=== PATIENT | male | born 1975 ===

== ENCOUNTER 2018-10-10 15:37 | Emergency (ER) | payer MEDICAID ==
[2018-10-10 15:58] VITALS: TEMP 98.2; O2SAT 99
--- NOTE | 2018-10-10 16:41 | ED PDOC ---
HPI: Trauma/Fall - HPI Time Seen by Provider: 10/10/18 16:03 Chief Complaint (Nursing): Finger,Hand,&Wrist Chief Complaint (Provider): trauma-multisystem History Per: Patient History/Exam Limitations: no limitations Onset/Duration Of Symptoms: Days (1x week) Injury Occurred (Timing): Days Ago: (1x week ago) Location Of Injury: Right: Hand (right hand, left 4th digit), Left: Hand, Anterior: Head (nose) Severity: Moderate Associated Symptoms: denies: LOC Additional Complaint(s): 43 year old male with no pertinent past history presents to the ED for an evaluation of multiple injuries status post falling down a flight of stairs 1x week ago. Patient states he fell down a flight of stairs (16 stairs) 1x week ago, injuring his nose, right hand, and left 4th digit. Patient denies loss of consciousness, and reports having a right broken wrist in the past. Patient is right hand dominant. Patient denies having any other complaints. PMD: Robbin Cuellar MD - Fall Fall:Prior To Injury: Other (fell down flight of stairs (16 stairs)) Past Medical History Reviewed: Historical Data, Nursing Documentation, Vital Signs Vital Signs: Last Vital Signs Temp 98.2 F 10/10/18 15:56 Pulse 74 10/10/18 15:56 Resp 16 10/10/18 15:56 BP 143/93 H 10/10/18 15:56 Pulse Ox 99 10/10/18 15:56 - Medical History PMH: No Chronic Diseases - Surgical History Surgical History: No Surg Hx - Family History Family History: States: No Known Family Hx - Social History Drugs: Denies - Immunization History Hx Tetanus Toxoid Vaccination: No Hx Influenza Vaccination: No Hx Pneumococcal Vaccination: No - Home Medications Home Medications: Ambulatory Orders Medication Instructions Recorded Amoxicillin 500 mg PO Q8 04/05/14 Amoxicillin/Potassium Clav 1 tab PO TID #15 tab 04/05/14 [Augmentin 500 mg-125 mg] Hydrocodone/Acetaminophen [Vicodin 1 tab PO Q8 PRN #15 tab 04/05/14 5 mg-500 mg] Motrin Tab 600 mg PO TID 04/05/14 Ibuprofen [Motrin Tab] 800 mg PO Q8 PRN #20 tab 03/02/16 Ibuprofen [Motrin] 600 mg PO Q6 #20 tab 10/10/18 - Allergies Allergies/Adverse Reactions: Allergies Allergy/AdvReac Type Severity Reaction Status Date / Time No Known Allergies Allergy Verified 10/10/18 15:56 Review of Systems ROS Statement: Except As Marked, All Systems Reviewed And Found Negative ENT: Positive for: Other (nasal area pain) Musculoskeletal: Positive for: Hand Pain (right hand pain, left 4th digit pain) Physical Exam - Reviewed Nursing Documentation Reviewed: Yes Vital Signs Reviewed: Yes - Physical Exam Appears: Positive for: Well, Non-toxic, No Acute Distress Head Exam: Positive for: NORMOCEPHALIC. Negative for: ATRAUMATIC (tenderness to nasal bridge, healed superficial abrasions. (-) ecchymosis, (-) edema, (-) c repitus) Skin: Positive for: Normal Color, Warm, Dry Extremity: Positive for: Normal ROM (right hand: depression of 4th MCP with moderate edema and scabbed over lesions. (-) ecchymosis, (+) full ROM. Left 4th digit: full ROM, but tenderness over PIP joint.) Neurologic/Psych: Positive for: Alert, Oriented (3x) - ECG O2 Sat by Pulse Oximetry: 99 (RA) Pulse Ox Interpretation: Normal Medical Decision Making Medical Decision Makin:03 Initial impression: 43 year old male with multiple injuries status post fall. Initial plan: * XRay hand left 3 views * XRay hand right 3 views * XRay nasal bones * reevaluation * * * XR Nasal bones: (+) fracture * XR Rt hand: (+) fxr to 4-5th metacarpals * XR left hand: (+) fxr to base of 2nd phalanx * all read by FAHEEM Cohen * * * Pt delcined CT scan of Head or neck at this time. Report no headache, no LOC. * * Pt placed in metacarpal hand splint on right, finger splint o left 4th. Given Hand urban design consultant , Dr. Coombs, to follow up for hand fxrs and nasal bone fxrs. importance of follow up stressed. Scribe Attestation: Documented by Alivia Corrigan, acting as a scribe for Erlinda Hollingsworth Provider Scribe Attestation: All medical record entries made by the Scribe were at my direction and personally dictated by me. I have reviewed the chart and agree that the record accurately reflects my personal performance of the history, physical exam, medical decision making, and the department course for this patient. I have also personally directed, reviewed, and agree with the discharge instructions and disposition. Disposition - Clinical Impression Clinical Impression: Hand fracture, Finger fracture, Nasal bone fracture - Patient ED Disposition Is Patient to be Admitted: No - Disposition Referrals: Kristi Salas MD [Staff Provider] - Disposition: Routine/Home Disposition Time: 18:11 Condition: STABLE Prescriptions: Ibuprofen [Motrin] 600 mg PO Q6 #20 tab Instructions: Hand Fracture, Nose Fracture, Finger Fracture Forms: [employer] ([place])
--- NOTE | 2018-10-10 18:18 | RAD ---
Date of service: 10/10/2018 PROCEDURE: Radiographs of Nasal Bones HISTORY: fall down stairs 1 wk ago COMPARISON: None available. TECHNIQUE: Frontal and lateral radiographs of the nasal bones. FINDINGS: Nondisplaced nasal bone fractures bilaterally. IMPRESSION: Nondisplaced nasal bone fractures. Concordant results with the preliminary interpretation rendered by the emergency department physician procedure.
[2018-10-10 18:30] VITALS: BP 141/89; PULSE 76; RESP 15
--- NOTE | 2018-10-11 09:08 | RAD ---
PROCEDURE: Left Hand Radiographs. HISTORY: fall down stairs 1 wk ago COMPARISON: None. FINDINGS: BONES: Dorsal plate fracture minimally displaced proximally and posteriorly at the base of the middle phalanx left ring finger. No dislocation or subluxation appreciable. No additional fracture throughout the left hand. JOINTS: Normal. No osteoarthritic changes. SOFT TISSUES: Limited soft tissue edema seen local to the fracture site. OTHER FINDINGS: None. IMPRESSION: Dorsal plate fracture base middle phalanx left ring finger without dislocation. PA review assigned.
--- NOTE | 2018-10-11 09:09 | RAD ---
PROCEDURE: Right Hand Radiographs. HISTORY: fall down stairs 1 wk ago COMPARISON: None. FINDINGS: BONES: Comminuted impacted fracture right 5th metacarpal bone sparing the articular surface apparently. No dislocation or subluxation. Old healed fracture of the 4th metacarpal bone. No additional bony abnormality appreciate throughout the right hand. Incidental note is made of status post prior ORIF distal right radius. JOINTS: No subluxation or dislocation. SOFT TISSUES: Normal. OTHER FINDINGS: None. IMPRESSION: Boxer's fracture right 5th metacarpal bone on acute or subacute basis. Old healed boxer's fracture right 4th metacarpal bone. Prior ORIF distal right radius.
== END 2018-10-10 18:29 | disposition home or self-care (01) ==
LOC: H.ER 15:37
DX: S02.2XXA Fracture of nasal bones, initial encounter for closed fracture (principal); S62.91XA Unspecified fracture of right hand, initial encounter for closed fracture; S62.635A Displaced fracture of distal phalanx of left ring finger, initial encounter for closed fracture; W10.9XXA Fall (on) (from) unspecified stairs and steps, initial encounter; Y92.89 Other specified places as the place of occurrence of the external cause